=== PATIENT | female | born 1985 | race African-American/Black ===

== ENCOUNTER 2017-06-20 09:35 | Emergency (ER) | payer OTHER ==
[2017-06-20] MEDS ORDERED: HYDROcodone/Acetaminophen 10/325 mg Tablet ONE (10:04)
[2017-06-20] MEDS ORDERED: Ketorolac Tromethamine 30 MG/ML VIAL ONE (10:04)
--- NOTE | 2017-06-20 10:46 | RAD ---
2 VIEWS LUMBAR SPINE: Date: 06/20/17 HISTORY: Back pain which started last night after bending over. Patient radiates to right hip. FINDINGS: There are five non-rib bearing lumbar-type vertebral bodies. The vertebral body heights and intervert ebral disc spaces are within normal limits. There is suggestion of bilateral pars defects at L5, but there is no anterolisthesis of L5 on S1. No fracture or subluxation is seen. There are metallic clip s overlying the pelvis bilaterally, probably related to tubal ligation. A T-shaped intrauterine contr aceptive device is also noted in place. IMPRESSION: 1. Spondylolysis at L5. 2. No fracture or subluxation is present. POS: [facility]
== END 2017-06-20 11:01 | disposition home or self-care (01) ==
LOC: ERS 09:35
DX: S33.5XXA Sprain of ligaments of lumbar spine, initial encounter (principal); E78.5 Hyperlipidemia, unspecified; Z79.899 Other long term (current) drug therapy; Z79.84 Long term (current) use of oral hypoglycemic drugs; X50.9XXA Other and unspecified overexertion or strenuous movements or postures, initial encounter
CPT/HCPCS: 72100; 96372; J1885

== ENCOUNTER 2017-07-12 10:03 | Emergency (ER) | payer OTHER | END 2017-07-12 10:55 | disposition home or self-care (01) | LOC: ERS 10:03 | DX: J06.9 Acute upper respiratory infection, unspecified (principal); E78.5 Hyperlipidemia, unspecified; F41.9 Anxiety disorder, unspecified; F32.9 Major depressive disorder, single episode, unspecified; Z79.899 Other long term (current) drug therapy | CPT/HCPCS: 99283 ==

== ENCOUNTER 2017-08-20 07:25 | Outpatient (CLI) | payer OTHER | END 2017-08-20 07:26 | disposition home or self-care (01) | LOC: BICULT 07:25 | PROVIDERS: ATTEND Family Medicine | DX: N92.0 Excessive and frequent menstruation with regular cycle (principal) | CPT/HCPCS: 76856 ==

== ENCOUNTER 2017-10-28 09:38 | Outpatient (CLI) | payer OTHER | END 2017-10-28 09:39 | disposition home or self-care (01) | LOC: BICRAD 09:38 | PROVIDERS: ATTEND Family Medicine | DX: M54.5 Low back pain (principal) | CPT/HCPCS: 72120; 72220 ==

== ENCOUNTER 2018-08-11 01:19 | Emergency (ER) | payer OTHER ==
[2018-08-11 03:30] LABS: Bilirubin Negative (Negative); Blood, Urine Negative (Negative); Clarity CLEAR (Clear); Glucose, Urine (Dipstick) Negative (Negative); Leukocyte Negative (Negative); Nitrite Negative (Negative); Protein, Urine (Dipstick) Negative (Neg-Trace); Specific Gravity, Urine 1.023 (1.002-1.036); pH, Urine 7.5 (5.0-9.0)
[2018-08-11 03:42] LABS: Pregnancy Test - Urine (BHCG) Negative (Negative); Pregu Control Background? CLEAR/WHITE (CLR/WHITE); Pregu Control Bar Appear? YES (CONTROL BAR); Specific Gravity 1.023 (1.002-1.036)
[2018-08-11] MEDS ORDERED: Ketorolac Tromethamine 30 MG/ML VIAL ONE (03:44)
[2018-08-11] MEDS ORDERED: Ondansetron PF 4 MG/2 ML Vial ONE (03:44)
[2018-08-11 03:47] LABS: #Eosinphils 0.1 thou/uL (0.0-0.7); #Lymphocytes 1.3 thou/uL (1.20-3.40); #Monocytes 0.5 thou/uL (0.11-0.59); #Neutrophils 6.2 thou/uL (1.40-6.50); %Basophils 0.4 % (0.0-1.0); %Eosinophils 1.3 % (0.0-10.0); %Lymphocytes 15.4 % (21.0-51.0); %Monocytes 6.1 % (0.0-10.0); %Neutrophils 76.8 % (42.0-75.0); Hemoglobin 13.1 g/dL (12.0-16.0); Mean Corpuscular HGB CONC 33.9 g/dL (32.0-36.0); Mean Corpuscular Hemoglobin 29.5 pg (27.0-31.0); Mean Platelet Volume 11.1 fL (7.4-10.4); Platelet Count 136 thou/uL (130-400); RBC Distribution Width 12.6 % (11.5-14.5); Red Blood Cell (RBC) Count 4.45 mill/uL (4.20-5.40); White Blood Cell (WBC) Count 8.1 thou/uL (4.8-10.8)
[2018-08-11 04:07] LABS: ALT (SGPT) 20 U/L (8-55); AST (SGOT) 15 U/L (5-34); Albumin 4.4 g/dL (3.5-5.0); Alkaline Phosphatase 72 U/L (40-150); Anion Gap 12 mmol/L (10-20); BUN (Urea Nitrogen) 15 mg/dL (7.0-18.7); Bilirubin, Total 0.5 mg/dL (0.2-1.2); Calc. Creatinine Clearance 0 mL/min (70-130); Calcium 9.5 mg/dL (7.8-10.44); Carbon Dioxide 26 mmol/L (22-29); Chloride 101 mmol/L (98-107); Estimated GFR-MDRD Greater than 90; Globulin 3.2 g/dL (2.4-3.5); Glucose 101 mg/dL (70-105); Potassium 3.8 mmol/L (3.5-5.1); Protein, Total 7.6 g/dL (6.0-8.3); Sodium 135 mmol/L (136-145)
[2018-08-11 04:11] LABS: Troponin I Less than 0.010 ng/mL (< 0.028)
[2018-08-11] MEDS ORDERED: Dicyclomine 20 MG TAB ONE (04:12)
[2018-08-11] MEDS ORDERED: Acetaminophen 500 MG TAB ONE (05:53)
[2018-08-11] MEDS ORDERED: diphenhydrAMINE 50 MG/ML VIAL ONE (05:53)
[2018-08-11] MEDS ORDERED: Metoclopramide HCl 10 MG/2 ML VIAL ONE (05:53)
== END 2018-08-11 07:07 | disposition home or self-care (01) ==
LOC: ERS 01:19
DX: J11.1 Influenza due to unidentified influenza virus with other respiratory manifestations (principal); E78.5 Hyperlipidemia, unspecified; F41.9 Anxiety disorder, unspecified; F32.9 Major depressive disorder, single episode, unspecified
CPT/HCPCS: 80053; 81003; 81025; 84484; 85025; 87804; 93005; 96361; 96374; 96375; J1200; J1885; J2405; J2765

== ENCOUNTER 2019-01-13 10:49 | Outpatient (CLI) | payer OTHER ==
--- NOTE | 2019-01-13 11:33 | RAD ---
LEFT ANKLE 3 VIEWS: HISTORY: Left ankle pain. FINDINGS/IMPRESSION: The ankle mortise is maintained. No acute fracture, dislocation, or bony destruction is seen. A tin y posterior calcaneal spur is present. POS: [facility]
== END 2019-01-13 10:50 | disposition home or self-care (01) ==
LOC: RAD-FRANK 10:49
PROVIDERS: ATTEND Nurse Practitioner Family
DX: M25.572 Pain in left ankle and joints of left foot (principal); M77.32 Calcaneal spur, left foot

== ENCOUNTER 2019-08-08 13:48 | Outpatient (CLI) | payer OTHER ==
--- NOTE | 2019-08-08 13:57 | RAD ---
XR Chest Pa Lat STANDARD HISTORY: Cough COMPARISON: None FINDINGS: The heart size is normal. The lungs are well expanded without focal areas of consolidation, pneumothorax or pleural effusions. IMPRESSION: No radiographic evidence of acute cardiopulmonary process.
== END 2019-08-08 13:49 | disposition home or self-care (01) ==
LOC: RAD-FRANK 13:48
PROVIDERS: ATTEND Nurse Practitioner Family
DX: R05 Cough (principal)
CPT/HCPCS: 71046

== ENCOUNTER 2019-09-21 09:36 | Outpatient (CLI) | payer OTHER ==
--- NOTE | 2019-09-21 10:18 | RAD ---
Exam: XR Knee Rt 4 View STANDARD HISTORY: Severe right knee pain after a fall one day ago. Patient states unable to bear weight. COMPARISON: None FINDINGS: No acute fracture, dislocation, or other acute osseous abnormality is identified. IMPRESSION: No acute osseous abnormality is identified.
== END 2019-09-21 09:37 | disposition home or self-care (01) ==
LOC: SCSRAD 09:36
PROVIDERS: ATTEND Nurse Practitioner Family
DX: W19.XXXA Unspecified fall, initial encounter (principal)

== ENCOUNTER 2020-04-23 13:52 | Outpatient (CLI) | payer OTHER ==
--- NOTE | 2020-04-23 14:05 | RAD ---
EXAM: 2 views of the left hip HISTORY: Left hip pain COMPARISON: None FINDINGS: 2 views of the left hip shows no evidence of acute fracture or dislocation. No degenerative changes are seen. No soft tissue swelling is present. An IUD is seen in the pelvis. IMPRESSION: No evidence of acute osseous abnormality.
== END 2020-04-23 13:53 | disposition home or self-care (01) ==
LOC: RAD-FRANK 13:52
PROVIDERS: ATTEND Nurse Practitioner Family
DX: M25.552 Pain in left hip (principal)

== ENCOUNTER 2021-02-26 15:36 | Outpatient (CLI) | payer OTHER | END 2021-02-26 15:37 | disposition home or self-care (01) | LOC: RAD-FRANK 15:36 | PROVIDERS: ATTEND Nurse Practitioner Family | DX: M79.632 Pain in left forearm (principal) ==

== ENCOUNTER 2021-04-29 13:09 | Emergency (ER) | payer OTHER ==
[2021-04-29 14:33] LABS: #Eosinphils 0.2 thou/uL (0.0-0.7); #Lymphocytes 2.6 thou/uL (1.20-3.40); #Monocytes 0.6 thou/uL (0.11-0.59); #Neutrophils 3.4 thou/uL (1.40-6.50); %Basophils 0.7 % (0.0-1.0); %Lymphocytes 38.1 % (21.0-51.0); %Monocytes 9.1 % (0.0-10.0); Hemoglobin 12.3 g/dL (12.0-16.0); Mean Corpuscular HGB CONC 31.9 g/dL (32.0-36.0); Mean Corpuscular Hemoglobin 28.1 pg (27.0-31.0); Mean Platelet Volume 11.4 fL (7.4-10.4); Platelet Count 123 thou/uL (130-400); RBC Distribution Width 12.6 % (11.5-14.5); Red Blood Cell (RBC) Count 4.37 mill/uL (4.20-5.40); White Blood Cell (WBC) Count 6.9 thou/uL (4.8-10.8)
[2021-04-29 14:55] LABS: ALT (SGPT) 15 U/L (8-55); AST (SGOT) 14 U/L (5-34); Albumin 4.2 g/dL (3.5-5.0); Alkaline Phosphatase 78 U/L (40-110); Anion Gap 13 mmol/L (10-20); BUN (Urea Nitrogen) 9 mg/dL (7.0-18.7); Bilirubin, Total 0.4 mg/dL (0.2-1.2); Calc. Creatinine Clearance 0 mL/min (70-130); Calcium 9.2 mg/dL (7.8-10.44); Carbon Dioxide 24 mmol/L (22-29); Chloride 105 mmol/L (98-107); Globulin 2.9 g/dL (2.4-3.5); Glucose 85 mg/dL (70-105); Potassium 3.9 mmol/L (3.5-5.1); Protein, Total 7.1 g/dL (6.0-8.3); Sodium 138 mmol/L (136-145)
== END 2021-04-29 15:56 | disposition home or self-care (01) ==
LOC: ERS 13:09
DX: J06.9 Acute upper respiratory infection, unspecified (principal); E78.5 Hyperlipidemia, unspecified; E78.00 Pure hypercholesterolemia, unspecified; Z79.84 Long term (current) use of oral hypoglycemic drugs; Z79.899 Other long term (current) drug therapy
CPT/HCPCS: 36415; 71045; 80053; 84484; 85025; 93005

== ENCOUNTER 2023-01-20 07:21 | Emergency (ER) | payer OTHER ==
[2023-01-20] MEDS ORDERED: Ketorolac Tromethamine 30 MG/ML VIAL ONE (07:41)
== END 2023-01-20 08:37 | disposition home or self-care (01) ==
LOC: ERS 07:21
DX: S93.432A Sprain of tibiofibular ligament of left ankle, initial encounter (principal); I10 Essential (primary) hypertension; E78.00 Pure hypercholesterolemia, unspecified; K21.9 Gastro-esophageal reflux disease without esophagitis; Z79.899 Other long term (current) drug therapy; V40.5XXA Car driver injured in collision with pedestrian or animal in traffic accident, initial encounter
CPT/HCPCS: 96372; J1885